=== PATIENT | male | born 1965 | race Caucasian/White ===

== ENCOUNTER → 2025-01-03 08:37 | Outpatient (CLI) | payer OTHER, SELFPAY ==
--- NOTE | 2025-01-03 08:40 | DI.ECHO.S_ITS ---
[facility] : : [id number] : : [place] : : [id number] : : Phone: [phone] Echocardiogram Report + + :Name: LITO LOPEZ Study Date: 01/03/2025 Height: 69 in : :Hospital ReadingLocation: Weight: 289 lb : : Gender: Male BSA: 2.4 m2 : :: 1965 Age: 59 yrs BP: 162/102 mmHg: :Reason For Study: ISCHEMIC HEART DISEASE : :Ordering Physician: SINGH ALTAMIRANO : :Claudio Performed By: Flor Griffith : :Referring: NIC ANTONIO : + + Interpretation Summary There is mild concentric left ventricular hypertrophy. The ejection fraction is estimated to be 60-65%. The aortic valve is bicuspid. The aortic valve mean gradient is 42 mmHg. History of aortic valve repair with 21mm HAART 200 Ring 06/19/2020. The calculated aortic valve area is 0.95 cm2. There is mild tricuspid regurgitation. Procedure: A two-dimensional transthoracic echocardiogram with color flow and Doppler was performed. The study quality was technically difficult. There is no prior echocardiogram noted for this patient. A contrast injection of Definity was performed to improve assessment of LV function. Patient states history of bicuspid aortic valve with ring repair and ascending aneurysm repair. Per Medicine: 21mm HAART 200 Ring with ultrasonic leaflet debridement and ascending aorta replacement with 30mm Dacron graft 06/19/2020. The patient was in sinus rhythm with heart rates between 54-73 bpm during the exam. Left Ventricle: The left ventricle is normal in size. There is mild concentric left ventricular hypertrophy. The ejection fraction is estimated to be 60-65%. Left ventricular wall motion is normal. Right Ventricle: The right ventricle is mildly dilated. Right ventricular systolic function is mildly reduced. Atria: The left atrial size is normal. Right atrial size is normal. There is no Doppler evidence for an interatrial shunt. Mitral Valve: There is mild mitral annular calcification. The mitral valve leaflets appear to open well. There is mild mitral regurgitation. Aortic Valve: The aortic valve is bicuspid. History of aortic valve repair with 21mm HAART 200 Ring 06/19/2020. The peak aortic velocity is 4.3 m/sec. The aortic valve mean gradient is 42 mmHg. The calculated aortic valve area is 0.95 cm2. There is trace aortic regurgitation. Tricuspid Valve: The tricuspid valve leaflets are thin and pliable. There is mild tricuspid regurgitation. The right ventricular systolic pressure is estimated to be at least 15 mmHg based on an estimated right atrial pressure of 3 mm Hg. Pulmonic Valve: The pulmonic valve leaflets are thin and pliable; valve motion is normal. There is no pulmonic valvular regurgitation. Great Vessels: The aortic root is mildly dilated. The ascending aorta is moderately enlarged. The IVC is of normal diameter and collapses greater than 50% with a sniff. This suggests a low right atrial pressure of 3 mm Hg. Pericardium/ Pleura There is no pericardial effusion. There is no pleural effusion. MMode/2D Measurements & Calculations LVIDd: 5.0 cm LVOT diam: 2.3 cm LVIDs: 3.5 cm Ao root diam: 4.3 cm FS: 29.9 % asc Aorta Diam: 4.3 cm IVSd: 1.2 cm LVPWd: 1.3 cm LV whatley. diameter/BSA (cm/m^2): 2.1 LV sys. diameter/BSA (cm/m^2): 1.5 LA A2 area: 19.0 cm2 RA long axis: 5.5 cm LA A4 area: 15.5 cm2 RA area: 17.8 cm2 LA length (vol): 4.6 cm RA vol: 48.8 ml LA vol: 54.0 ml RA : 20.2 ml/m2 LA vol index: 22.3 ml/m2 IVC diam: 1.7 cm RVD1 (basal): 4.2 cm RVD2 (mid): 3.2 cm TAPSE: 1.5 cm Doppler Measurements & Calculations Ao V2 max: 425.0 cm/sec LVOT Max Sylvester: 94.4 cm/sec Ao V2 mean: 301.9 cm/sec LV V1 max P.6 mmHg Ao max P.3 mmHg LV V1 VTI: 22.1 cm Ao mean P.0 mmHg ALEX(I,D): 0.95 cm2 Ao V2 VTI: 99.7 cm ALEX(V,D): 0.95 cm2 sev ratio: 0.22 ALEX indexed to BSA (cm^2/m^2): 0.39 MV E max sylvester: 67.5 cm/sec TR max sylvester: 176.3 cm/sec MV A max sylvester: 64.8 cm/sec TR max P.4 mmHg MV E/A: 1.0 PA V2 max: 109.4 cm/sec Med Peak E' Sylvester: 10.0 cm/sec PA V2 mean: 71.8 cm/sec E/E' med: 6.7 PA mean P.4 mmHg Lat Peak E' Sylvester: 9.7 cm/sec PA pr(Accel): 12.2 mmHg E/E' lat: 7.0 E/e' average: 6.8 MV dec time: 0.21 sec SV(LVOT): 94.6 ml Reading Physician:01:16 PM
== END ==
PROVIDERS: Referring Provider Chiropractor; Visit Provider Chiropractor
DX: Q23.81 Bicuspid aortic valve (principal); I08.1 Rheumatic disorders of both mitral and tricuspid valves; I25.9 Chronic ischemic heart disease, unspecified
CPT/HCPCS: C8929; Q9957